=== PATIENT | female | born 1940 | race Caucasian/White ===

== ENCOUNTER → 2017-01-14 | Outpatient (CLI) | payer OTHER | LOC: BMCIMAGING 13:58 | PROVIDERS: ATTEND Internal Medicine | DX: C55 Malignant neoplasm of uterus, part unspecified (principal) ==

== ENCOUNTER → 2017-04-08 | Outpatient (CLI) | payer OTHER | LOC: BMCIMAGING 13:57 | PROVIDERS: ATTEND Internal Medicine | DX: M54.6 Pain in thoracic spine (principal) ==

== ENCOUNTER → 2018-11-05 | Outpatient (CLI) | payer OTHER | LOC: BMCIMAGING 10:51 ==

== ENCOUNTER → 2018-12-01 | Outpatient (CLI) | payer OTHER | LOC: FIMAGING 07:40 ==